=== PATIENT | female | born 1970 | race Caucasian/White ===

== ENCOUNTER → 2017-07-16 | Outpatient (REF) | payer OTHER ==
[2017-07-16 13:19] LABS: BASO # 0.1 10^3/uL (0.0-0.2); BASO % 1.1 % (0.0-1.0); EOS # 0.2 10^3/uL (0.0-0.50); EOS % 3.5 % (0.0-3.0); HEMATOCRIT 39.7 % (36.0-47.0); HEMOGLOBIN 13.2 g/dl (12.0-15.5); IMMATURE GRANULOCYTE % 0.3 % (0-3.0); LYMPH # 2.4 10^3/uL (1.5-4.5); LYMPH % 37.3 % (24.0-44.0); MEAN CORPUSCULAR HEMOGLOBIN 31.6 pg (27.0-33.0); MEAN CORPUSCULAR HGB CONC 33.2 g/dl (32.0-36.5); MONO # 0.5 10^3/uL (0.0-0.8); MONO % 7.8 % (0.0-5.0); NEUTROPHILS # 3.3 10^3/uL (1.8-7.7); PLATELET COUNT, AUTOMATED 362 10^3/uL (150-450); RED BLOOD COUNT 4.18 10^6/uL (4.00-5.40); RED CELL DISTRIBUTION WIDTH 12.3 % (11.5-14.5); WHITE BLOOD COUNT 6.5 10^3/uL (4.0-10.0)
[2017-07-16 13:23] LABS: DRVV SCREEN 34.3 SEC
[2017-07-16 13:26] LABS: PTT LUPUS TYPE ANTICOAG SCREEN 0.8 (0-1.2)
[2017-07-16 13:35] LABS: VITAMIN B12 LEVEL 328 PG/ML
[2017-07-16 13:36] LABS: FOLATE 7.4 NG/ML
[2017-07-16 13:41] LABS: ALBUMIN 3.8 GM/DL (3.2-5.2); ALBUMIN/GLOBULIN RATIO 1.23 (1.00-1.93); ALKALINE PHOSPHATASE 56 U/L (45-117); ALT/SGPT 25 U/L (12-78); ANION GAP 7 MEQ/L (8-16); AST/SGOT 14 U/L (7-37); BILIRUBIN,TOTAL 0.2 MG/DL (0.2-1.0); BLOOD UREA NITROGEN 16 MG/DL (7-18); CALCIUM LEVEL 8.8 MG/DL (8.5-10.1); CARBON DIOXIDE LEVEL 25 MEQ/L (21-32); CHLORIDE LEVEL 108 MEQ/L (98-107); CREATININE FOR GFR 0.88 MG/DL (0.55-1.30); GLOMERULAR FILTRATION RATE > 60.0 (>58); GLUCOSE, FASTING 98 MG/DL (70-100); POTASSIUM SERUM 4.4 MEQ/L (3.5-5.1); RHEUMATOID FACTOR QUANT < 10.0 IU/ML (<15.0); SODIUM LEVEL 140 MEQ/L (136-145); TOTAL PROTEIN 6.9 GM/DL (6.4-8.2)
[2017-07-16 14:01] LABS: ERYTHROCYTE SEDIMENTATION RATE 6 mm/hr (0-20)
[2017-07-16 14:32] LABS: ESTIMATED AVERAGE GLUCOSE 105 MG/DL (60-110); HEMOGLOBIN A1c 5.3 %
[2017-07-18 10:20] LABS: ALBUMIN 4.28 GM/DL (3.29-5.55); ALBUMIN % 62.1 % (55.8-66.1); ALPHA-1-GLOBULIN % 3.7 % (2.9-4.9); ALPHA-1-GLOBULINS 0.26 GM/DL (0.17-0.41); ALPHA-2-GLOBULINS 0.63 GM/DL (0.42-0.99); ALPHA-2-GLOBULINS % 9.2 % (7.1-11.8); BETA-1-GLOBULINS 0.44 GM/DL (0.28-0.60); BETA-1-GLOBULINS % 6.4 % (4.7-7.2); BETA-2-GLOBULINS 0.36 GM/DL (0.19-0.55); BETA-2-GLOBULINS % 5.2 % (3.2-6.5); GAMMA GLOBULIN % 13.4 % (11.1-18.8); GAMMA GLOBULINS 0.92 GM/DL (0.65-1.58)
[2017-07-19 10:19] LABS: VITAMIN B1 LEVEL WHOLE BLOOD 103.1 nmol/L (66.5-200.0); VITAMIN B6,PYRIDOXAL PHOSPHATE 35.7 ug/L (2.0-32.8)
[2017-07-19 14:16] LABS: ANCA-ATYPICAL <1:20 titer (Neg:<1:20); ANTI DOUBLE STRAND-DNA AB <1 IU/mL (0-9); ANTINUCLEAR ANTIBODIES DIRECT Negative (Negative); CYTOPLASMIC NEUTROP AB ANCA-C <1:20 titer (Neg:<1:20); Lyme Disease IgG/IgM Antibodie <0.91 ISR (0.00-0.90); Lyme Disease IgM Ab Quantitati <0.80 index (0.00-0.79); PERINUCLEAR AB ANCA-P <1:20 titer (Neg:<1:20); SJOGREN'S ANTI SS-A <0.2 AI (0.0-0.9); SJOGREN'S ANTI SS-B <0.2 AI (0.0-0.9); VITAMIN E(ALPHA TOCOPHEROL) 9.6 mg/L (7.0-25.1); VITAMIN E(GAMMA TOCOPHEROL) 2.4 mg/L (0.5-5.5)
== END ==
LOC: M LABNEURO 09:18
DX: G62.9 Polyneuropathy, unspecified (principal)

== ENCOUNTER → 2020-01-26 | Outpatient (REF) | payer OTHER ==
[2020-01-26 18:18] LABS: APPEARANCE, URINE CLEAR (CLEAR); BACTERIA, URINE AUTO 1+ (NEGATIVE); BILIRUBIN, URINE AUTO NEGATIVE (NEGATIVE); BLOOD, URINE BLOOD NEGATIVE (NEGATIVE); COLOR, URINE YELLOW (YELLOW); GLUCOSE, URINE (UA) AUTO NEGATIVE (NEGATIVE); KETONE, URINE AUTO NEGATIVE (NEGATIVE); LEUKOCYTE ESTERASE, URINE AUTO NEGATIVE (NEGATIVE); NITRITE, URINE AUTO NEGATIVE (NEGATIVE); PROTEIN, URINE AUTO NEGATIVE (NEGATIVE); RBC, URINE AUTO 1 /HPF (0-3); SPECIFIC GRAVITY URINE AUTO 1.018 (1.002-1.035); SQUAMOUS EPITHELIAL CELL UR AU 2 /HPF (0-6); UROBILINOGEN, URINE AUTO 0.2 mg/dL (0.0-2.0); WBC, URINE AUTO 1 /HPF (0-3)
== END ==
LOC: M SMT 17:09
PROVIDERS: ATTEND Nurse Practitioner Women's Health
DX: R32 Unspecified urinary incontinence (principal)

== ENCOUNTER → 2020-04-13 | Outpatient (CLI) | payer OTHER ==
[~2020-04-13] MED LIST: ADDE20CA3
== END ==
LOC: M LABSMTC 11:14
PROVIDERS: ATTEND Anesthesiology
DX: Z01.812 Encounter for preprocedural laboratory examination (principal); Z20.822 Contact with and (suspected) exposure to COVID-19

== ENCOUNTER 2020-04-18 06:03 | Day surgery (SDC) | payer OTHER ==
[~2020-04-18] VITALS: Ht 165.1 cm; Wt 86.2 kg
[2020-04-18] MEDS ORDERED: ceFAZolin SOD 1 GM in D5W MINI-BAG PLUS 50 ML IV ONE (06:30)
[2020-04-18] MEDS ORDERED: ceFAZolin SOD 2 GM in IV 1 EA IV ONE (06:30)
[2020-04-18] MEDS ORDERED: LR 1,000 ML IV ONE (07:00)
[2020-04-18] MEDS ORDERED: METHYLENE BLUE 0.5% (5MG/ML) 10 ML AMP (PROVAYBLUE) As Ordered ONE (07:17)
[2020-04-18] MEDS ORDERED: BUPIVACAINE/EPIN 0.25% 30 ML VIAL As Ordered ONE (07:17)
[2020-04-18] MEDS ORDERED: BACITRACIN PWD 50,000 UNITS VIAL As Ordered ONE (07:18)
[2020-04-18] MEDS ORDERED: fentaNYL 100 MCG/2 ML INJECTION (J3010) As Ordered ONE (07:21)
[2020-04-18] MEDS ORDERED: METOCLOPRAMIDE INJ 10MG/2ML VIAL (J2765 PER 1) As Ordered ONE (07:21)
[2020-04-18] MEDS ORDERED: ONDANSETRON 4MG/2ML VIAL As Ordered ONE (07:21)
[2020-04-18] MEDS ORDERED: MIDAZOLAM INJ 2MG/2ML VIAL (J2250 PER 1MG) As Ordered ONE (07:22)
[2020-04-18] MEDS ORDERED: GLYCOPYRROLATE INJ 0.2 MG/ML 2 ML VIAL As Ordered ONE (07:43)
[2020-04-18] MEDS ORDERED: FLUORESCEIN 10% (100MG/ML) 5 ML VIAL As Ordered ONE (08:21)
[2020-04-18] MEDS ORDERED: FLUORESCEIN OPHTH 1 MG STRIP As Ordered ONE (08:21)
[2020-04-18] MEDS ORDERED: propofoL 200 MG/20 ML VIAL As Ordered ONE (08:39)
[2020-04-18] MEDS ORDERED: LR 1,000 ML IV SCH (09:15)
[2020-04-18] MEDS ORDERED: HYDROMORPHONE HCL 0.5 MG/ 0.5 ML SYRINGE (J1170 PER 1) IV PRN (09:15)
[2020-04-18] MEDS ORDERED: ONDANSETRON 4MG/2ML VIAL IV PRN (09:15)
[2020-04-18] MEDS ORDERED: PERCOCET 5MG/325MG TAB PO PRN (09:15)
[2020-04-18] MEDS ORDERED: METOCLOPRAMIDE INJ 10MG/2ML VIAL (J2765 PER 1) IV PRN (09:15)
[2020-04-18] MEDS ORDERED: fentaNYL 100 MCG/2 ML INJECTION (J3010) IV PRN (09:15)
--- NOTE | 2020-04-18 09:29 | ROOPDOC ---
[facility] Report Of Operation Report of Operation DATE OF PROCEDURE: 04/18/20 PREPROCEDURE DIAGNOSES: Mixed urinary incontinence but bothered by the stress component POSTPROCEDURE DIAGNOSES: Same PROCEDURE: Placement of the mid urethral sling (TVT-O by Ethicon) SURGEON: Annamaria Pickens MD BUSINESS INTELLIGENCE DIRECTOR: None ANESTHESIA: Spinal and some iv sedation ESTIMATED BLOOD LOSS: Approximately 30 mL. COMPLICATIONS: None REMARKS: None PROCEDURE NOTE: Patient is a 49-year-old female who had mixed urinary incontinence but was bothered mostly by the stress component. After discussing all different options, alternatives, risks, benefits it was decided to proceed with a mid urethral sling. Informed consent was obtained and pre-and postoperative expectations were discussed. DESCRIPTION OF PROCEDURE: The patient was brought into the operating room. She had sequential compression devices and had been given Ancef 3 g preoperatively. A spinal anesthetic was then given. She was placed in the lithotomy position and careful attention points were paid that her pressure points were well padded and protected. She was prepped and draped in the usual fashion. A [place] retractor was placed and an 18 Greek Phan catheter was placed. Next a 1 cm charlotte was made 1 cm from the urethral meatus and quarter percent Marcaine with lidocaine was injected. An incision was then made and then vaginal mucosa was dissected on either side up to the obturator membrane. The TVT O had been soaked in antibiotic irrigation and was then placed first on the right hand side and then on the left. It was brought up through the obturator membrane through skin. Vaginal mucosa was palpated and there was no evidence of injury. A 12 Greek Hegar dilator was placed under the sling for appropriate tensioning and the plastic covering was removed. The mesh was cut at skin level. Vaginal mucosa was closed using an interrupted 2-0 chromic suture. Cystoscopy had been performed above. Both ureteral orifices were seen with excellent reflux of methylene blue. There was no evidence of bladder injury. The bladder showed no stones, erythematous patches, lesions, or other abnormalities. The patient was returned to the recovery room in stable condition. ANNAMARIA PICKENS MD Apr 18, 2020 09:29
[2020-04-18 10:30] VITALS: BP 130/80
== END 2020-04-18 10:30 | disposition home or self-care (01) ==
LOC: M SDC 06:03
PROVIDERS: ATTEND Specialist
DX: N39.3 Stress incontinence (female) (male) (principal); F17.290 Nicotine dependence, other tobacco product, uncomplicated; Z79.899 Other long term (current) drug therapy
CPT/HCPCS: 57288; 81025; C1771; J0690; J2250; J2405; J2765; J3010; Q9968

== ENCOUNTER → 2021-06-29 | Outpatient (REF) | payer OTHER ==
[2021-06-29 17:34] LABS: BACTERIA, URINE AUTO NEGATIVE (NEGATIVE); RBC, URINE AUTO 1 /HPF (0-3); SQUAMOUS EPITHELIAL CELL UR AU 0 /HPF (0-6); WBC, URINE AUTO 0 /HPF (0-3)
== END ==
LOC: M SMT 16:54
PROVIDERS: ATTEND Specialist
DX: R32 Unspecified urinary incontinence (principal)

== ENCOUNTER → 2021-07-24 | Outpatient (CLI) | payer OTHER ==
[~2021-07-24] MED LIST changes: +ACET-683 PO; +ACET650T15 PO
== END ==
LOC: M LABSMTC 11:35
PROVIDERS: ATTEND Anesthesiology
DX: Z01.812 Encounter for preprocedural laboratory examination (principal); Z20.822 Contact with and (suspected) exposure to COVID-19

== ENCOUNTER 2021-07-28 09:10 | Day surgery (SDC) | payer OTHER ==
[~2021-07-28] VITALS: Ht 166.4 cm; Wt 86.2 kg
[2021-07-28] MEDS: ceFAZolin SOD 2 GM in IV 1 EA IV ONE (06:55)
[2021-07-28] MEDS ORDERED: fentaNYL 100 MCG/2 ML INJECTION As Ordered ONE (12:30)
[2021-07-28] MEDS ORDERED: KETOROLAC 60MG 2ML VIAL As Ordered ONE (12:30)
[2021-07-28] MEDS ORDERED: LIDOCAINE 2% 100MG/5ML SDV (FOR ANES.) As Ordered ONE (12:30)
[2021-07-28] MEDS ORDERED: propofoL 200 MG/20 ML VIAL As Ordered ONE ×3 (12:30→14:07)
[2021-07-28] MEDS ORDERED: MIDAZOLAM INJ 2MG/2ML VIAL (J2250 PER 1MG) As Ordered ONE (12:30)
[2021-07-28 17:45] VITALS: BP 159/89
== END 2021-07-28 17:50 | disposition home or self-care (01) ==
LOC: M SDC 09:10
PROVIDERS: ATTEND Specialist
DX: N39.3 Stress incontinence (female) (male) (principal); F90.9 Attention-deficit hyperactivity disorder, unspecified type; Z79.899 Other long term (current) drug therapy; Z87.891 Personal history of nicotine dependence
CPT/HCPCS: 52327; 81025; J0690; J1885; J2250; J3010; L8606